=== PATIENT | female | born 1975 | race Caucasian/White ===

== ENCOUNTER 2024-08-14 17:18 | Emergency (ER) | payer SELFPAY ==
[2024-08-14 17:20] VITALS: BP 112/79
--- NOTE | 2024-08-14 19:45 | ED.GENMED ---
History of Present Illness
General
Chief Complaint: Headache
Time Seen by Provider: 08/14/24 19:42
History of Present Illness
History of Present Illness:
TIME OF INITIAL ENCOUNTER: 7:45 PM
HPI: Patient presents due to headache. She had a spinal tap at [facility] 3 days ago. She was admitted to [facility] for further evaluation of the possibility of MS. She was found to have demyelinating lesions on MRI. She has not had any
fevers. She started vomiting today. The headache worsens when she stands up and is markedly improved when she is flat. She did not know what else to do. Although she lives in [place], she is staying with her parents as her mother recently
broke her arm here in the [place] area. She has not tried any caffeine.
EXAM:
GENERAL: Well appearing, elevated BMI, but appears somewhat uncomfortable
HEENT: Moist oral mucosa
NEUROLOGIC: Good strength all extremities, no coordination deficits
PSYCHIATRIC: Appropriate mental status, normal insight and judgement
EXTREMITIES: Nontender, no edema, moves all extremities equally
SKIN: No rash, no lesions
NUMBER AND COMPLEXITY OF PROBLEMS ADDRESSED AT THE ENCOUNTER
� Chronic conditions affecting care: Possible MS
� Acute Exacerbation and/or Progression of Chronic Illness: This is an acute problem
� Differential Diagnosis includes: Post dural puncture headache, nonspecific headache, tension headache, headache related to MS
AMOUNT AND/OR COMPLEXITY OF DATA TO BE REVIEWED AND ANALYZED
� I performed an independent evaluation of and my interpretation is:
EKG:
CT:
X-rays:
Laboratory Studies:
Other:
� Review of other/old records: The patient does not have access to her records at [facility] but has her discs with her
� Clinical information was obtained by an independent historian: None needed
� Prescriptions/Medications Considered but not given:
� Further testing considered but not performed: Imaging not indicated
RISK OF COMPLICATIONS AND/OR MORBIDITY OR MORTALITY OF PATIENT MANAGEMENT
� Social determinants of health affecting care: Lives at home in [place], currently staying with family and [place]
� Discussion with other providers: Dr. Hernandez, anesthesiologist was contacted and spoke to the patient for the possibility of a blood patch.
� Escalation of care including admission/observation vs risk of discharge considered: Ultimately, the patient and anesthesiologist agreed to hold off on the blood patch. Recommended caffeine. Will try Fioricet.
ANY OTHER UPDATES:
Phy Exam
Physical Exam
Physical Exam:
See HPI
Course
Vital Signs
Initial and Last Documented VS:
Initial Vital Signs
Temp Pulse Resp BP Pulse Ox
36.3 C 91 18 112/79 98
08/14/24 17:20 08/14/24 17:20 08/14/24 17:20 08/14/24 17:20 08/14/24 17:20
Last Documented Vital Signs
Temp Pulse Resp BP Pulse Ox
36.6 C 96 20 128/75 99
08/14/24 19:56 08/14/24 19:51 08/14/24 19:51 08/14/24 19:51 08/14/24 19:51
*Critical Care Note
Total Time (30-74mins, 75-104mins- exclusive of procedures): Not Applicable
ED Attending Note
-
Portions of this chart may have been created with voice recognition software.� Occasional wrong word or��sound alike� substitutions may have occurred due to the inherent limitations of voice recognition software.
Discharge Plan
Departure
Patient Disposition: Home (Routine Discharge)
Date of Disposition: 08/14/24
Time of Disposition: 21:10
Patient with high blood pressure during this ER visit?: Yes
Discharge Problem:
Post-dural puncture headache
Instructions: Spinal headache
Prescriptions:
New
[id number]-[id number]-pyzw [Fioricet] 50-300-40 mg capsule
1 - 2 cap PO Q8H PRN (Reason: Headache) Qty: 14 0RF
Activity Restrictions/Additional Instructions:
I did contact anesthesiologist here, Dr. De La Fuente. He does recommend trying to lay flat is much as he can. I am sending a prescription for Fioricet which has 40 mg of caffeine in each tablet. This is a relatively low amount of caffeine compared to
what is in a cup of coffee and you could continue taking some additional caffeinated products as well.
Interventions
Interventions:
*Risk Screen - Suicide Last Done: 08/14/24 17:22
*General Assessment Last Done: 08/14/24 19:57
*Neglect/Abuse Screening Last Done: 08/14/24 19:51
*ED- Fall Risk Assessment Last Done: 08/14/24 19:51
*ED COVID-19 Vaccine History Last Done: 08/14/24 19:51
ED- Neurological Assessment Last Done: 08/14/24 19:51
Discharge Date and Time
Print Language: NAMIBIAN
[2024-08-14 19:50] VITALS: BP 128/75
[2024-08-14 19:51] VITALS: BP 128/75; BMI 33.2
[2024-08-14 21:24] VITALS: BP 136/77
== END 2024-08-14 21:26 | disposition home or self-care (01) ==
LOC: EMR 17:18
PROVIDERS: EMERGENCY PHYSICIAN Emergency Medicine
DX: G97.1 Other reaction to spinal and lumbar puncture (principal); Y84.4 Aspiration of fluid as the cause of abnormal reaction of the patient, or of later complication, without mention of misadventure at the time of the procedure
CPT/HCPCS: 99282